=== PATIENT | male | born 1945 | race Two or more races ===

== ENCOUNTER 2018-07-01 22:33 | Inpatient (IN) | payer MEDICARE, MEDICAID ==
[~2018-07-01] VITALS: Ht 167.6 cm; Wt 78.5 kg
[2018-07-02] MEDS ORDERED: NKM (01:16)
[2018-07-02 04:00] VITALS: BP 130/70
[2018-07-02 07:33] LABS: EOSINOPHILS % (AUTO) 0.2 % (0.0-3.0); HEMATOCRIT 40.9 % (42.0-52.0); HEMOGLOBIN 14.5 G/DL (14.2-18.0); LYMPHOCYTES % (AUTO) 7.2 % (20.0-45.0); MEAN CORPUSCULAR VOLUME 79 FL (80-99); MONOCYTES % (AUTO) 10.3 % (1.0-10.0); NEUTROPHILS % (AUTO) 81.3 % (45.0-75.0); PLATELET COUNT 171 K/UL (150-450); RED CELL DISTRIBUTION WIDTH 10.9 % (11.6-14.8); WHITE BLOOD COUNT 8.8 K/UL (4.8-10.8)
[2018-07-02 07:45] LABS: ALANINE AMINOTRANSFERASE 32 U/L (12-78); ALBUMIN 2.6 G/DL (3.4-5.0); ALBUMIN/GLOBULIN RATIO 0.6 (1.0-2.7); ALKALINE PHOSPHATASE 108 U/L (46-116); ANION GAP 10 mmol/L (5-15); ASPARTATE AMINO TRANSFERASE 33 U/L (15-37); BILIRUBIN,TOTAL 0.7 MG/DL (0.2-1.0); BLOOD UREA NITROGEN 16 mg/dL (7-18); CALCIUM 7.5 MG/DL (8.5-10.1); CARBON DIOXIDE 24 MMOL/L (21-32); CHLORIDE 101 MMOL/L (98-107); CREATININE 0.9 MG/DL (0.55-1.30); PHOSPHORUS 1.8 MG/DL (2.5-4.9); POTASSIUM 3.1 MMOL/L (3.5-5.1); SODIUM 135 MMOL/L (136-145)
[2018-07-02 08:21] VITALS: BP 124/62
[2018-07-02] MEDS: Heparin 5000 units/ml inj SUBQ SCH ×3 (09:27→20:37)
--- NOTE | 2018-07-02 10:28 | Diagnostic Imaging Report ---
Indication: Cough Technique: 2 views of the chest Comparison: None Findings: There is dense consolidation of the posterior right middle lobe. The remainder the lungs are clear. The pleural spaces are clear. The heart size is normal Impression: Right middle lobe pneumonia
[2018-07-02 12:51] VITALS: BP 110/68
[2018-07-02] MEDS ORDERED: Isovue-300 100ml vial INJ PRN (13:30)
[2018-07-02] MEDS ORDERED: Promethazine/Codeine 5ml UD ORAL PRN (13:30)
--- NOTE | 2018-07-02 13:32 | Consultation ---
History of Present Illness General Date patient seen: Jul 02, 2018 Reason for Consultation: pneumonia Present Illness HPI 73 year old male without any PMHx was taken to [facility] with CC of fever and chills. Pt was found to have RLL infiltrate, hyponatremia, with nausea and transferred to [facility] for further management. Pt is sitting in bed, looks comfortable. Denies any cough or dyspnea. Allergies: Coded Allergies: PENICILLIN G PROCAINE (Verified Allergy, Intermediate, 07/02/18) PENICILLINS (Verified Allergy, Intermediate, 07/02/18) Medication History Scheduled No Known Medications* (NKM - No Known Medications*), 0 ., (Reported) Patient History Healthcare decision maker Resuscitation status Full Code Advanced Directive on File Past Medical/Surgical History Past Medical/Surgical History: (1) No pertinent past medical history Review of Systems Constitutional: Reports: chills, fever, malaise All Other Systems: negative except mentioned in HPI Physical Exam General Appearance: WD/WN, no apparent distress Lines, tubes and drains: peripheral HEENT: normocephalic, atraumatic Neck: non-tender, normal alignment Respiratory/Chest: chest wall non-tender, lungs clear Breasts: no masses Cardiovascular/Chest: normal rate, regular rhythm Last 24 Hour Vital Signs Date Time Temp Pulse Resp B/P (MAP) Pulse Ox O2 Delivery O2 Flow Rate FiO2 07/02/18 12:51 99.3 18 18 110/68 (82) 98 07/02/18 08:21 97.4 62 20 124/62 (82) 96 07/02/18 05:34 100.3 07/02/18 04:00 102.0 73 18 130/70 (90) 96 07/02/18 01:29 Room Air Intake and Output 07/01/18 07/02/18 19:00 07:00 Intake Total 240 ml Balance 240 ml Intake Oral 240 ml # Voids 1 Laboratory Tests Test 07/02/18 06:42 White Blood Count 8.8 K/UL (4.8-10.8) Red Blood Count 5.20 M/UL (4.70-6.10) Hemoglobin 14.5 G/DL (14.2-18.0) Hematocrit 40.9 % (42.0-52.0) L Mean Corpuscular Volume 79 FL (80-99) L Mean Corpuscular Hemoglobin 27.9 PG (27.0-31.0) Mean Corpuscular Hemoglobin Concent 35.4 G/DL (32.0-36.0) Red Cell Distribution Width 10.9 % (11.6-14.8) L Platelet Count 171 K/UL (150-450) Mean Platelet Volume 6.2 FL (6.5-10.1) L Neutrophils (%) (Auto) 81.3 % (45.0-75.0) H Lymphocytes (%) (Auto) 7.2 % (20.0-45.0) L Monocytes (%) (Auto) 10.3 % (1.0-10.0) H Eosinophils (%) (Auto) 0.2 % (0.0-3.0) Basophils (%) (Auto) 1.0 % (0.0-2.0) Sodium Level 135 MMOL/L (136-145) L Potassium Level 3.1 MMOL/L (3.5-5.1) L Chloride Level 101 MMOL/L (98-107) Carbon Dioxide Level 24 MMOL/L (21-32) Anion Gap 10 mmol/L (5-15) Blood Urea Nitrogen 16 mg/dL (7-18) Creatinine 0.9 MG/DL (0.55-1.30) Estimat Glomerular Filtration Rate mL/min (>60) Glucose Level 100 MG/DL (74-106) Calcium Level 7.5 MG/DL (8.5-10.1) L Phosphorus Level 1.8 MG/DL (2.5-4.9) L Magnesium Level 1.8 MG/DL (1.8-2.4) Total Bilirubin 0.7 MG/DL (0.2-1.0) Aspartate Amino Transf (AST/SGOT) 33 U/L (15-37) Alanine Aminotransferase (ALT/SGPT) 32 U/L (12-78) Alkaline Phosphatase 108 U/L (46-116) Total Protein 6.8 G/DL (6.4-8.2) Albumin 2.6 G/DL (3.4-5.0) L Globulin 4.2 g/dL Albumin/Globulin Ratio 0.6 (1.0-2.7) L Height (Feet): 5 Height (Inches): 6.00 Weight (Pounds): 173 Medications Current Medications Medications (Trade) Dose Ordered Sig/Reinier Route PRN Reason Start Time Stop Time Status Last Admin Dose Admin Acetaminophen (Tylenol) 650 mg Q6H PRN ORAL Mild Pain/Temp > 100.5 07/02/18 01:45 08/01/18 01:44 07/02/18 05:04 Azithromycin (Zithromax) 250 mg DAILY@2000 ORAL 07/02/18 20:00 07/06/18 20:01 Ceftriaxone Sodium 1 gm/ Dextrose 55 ml @ 110 mls/hr Q24H IVPB 07/02/18 20:00 07/09/18 19:59 Heparin Sodium (Porcine) (Heparin 5000 units/ml) 5,000 units EVERY 8 HOURS SUBQ 07/02/18 09:00 08/01/18 08:59 07/02/18 09:27 Iopamidol (Isovue-300 100ml) 100 ml NOW PRN INJ Radiology Procedure 07/02/18 13:30 07/04/18 13:22 UNV Assessment/Plan Problem List: (1) Pneumonia ICD Codes: J18.9 - Pneumonia, unspecified organism SNOMED: 871994203 (2) No pertinent past medical history SNOMED: 584565933 Assessment/Plan respiratory treatment check sputum CT of chest sputum induction check electrolytes symptomatic treatment dvt prophylaxis Cami Isaac MD Jul 02, 2018 13:32
--- NOTE | 2018-07-02 16:04 | Diagnostic Imaging Report ---
Clinical Indication: Right lung infiltrate, fever, chills Technique: IV administration nonionic contrast. Spiral acquisition obtained through the chest. Multiplanar reconstructions generated. Total dose length product 834.09 mGycm. CTDIvol(s) 19.71 mGy. Dose reduction achieved using automated exposure control Comparison: Chest radiograph of 5 hours earlier Findings: Infiltrate is seen involving the entire posterior right middle lobe. This also extends into the superior segment of the right lower lobe. The right upper lobe and left lung are clear. The pleural spaces are clear. The central airways are patent. The heart size is upper limits normal. No pericardial effusion. No mediastinal or hilar mass or adenopathy. Included portions of the thyroid are unremarkable. No axillary or chest wall mass or adenopathy. The esophagus is unremarkable. The bones are unremarkable. The included upper abdominal anatomy demonstrates a cyst in the right kidney. There is a cyst in the tip of the right hepatic lobe. The liver is somewhat hypoattenuating. Impression: Right middle lobe and superior segment right lower lobe infiltrate. Most likely secondary to pneumonia. Incidental finding of mild fatty liver Incidental findings of right renal and right lobe hepatic cyst. The CT scanner at [facility] is accredited by the [employer] and the scans are performed using protocols designed to limit radiation exposure to as low as reasonably achievable to attain images of sufficient resolution adequate for diagnostic evaluation.
[2018-07-02 16:29] VITALS: BP 132/61
[2018-07-02 20:00] VITALS: BP 107/55
[2018-07-02] MEDS ORDERED: cefTRIAXone 1 GM in D5W 55 ML IVPB SCH (20:00)
[2018-07-02] MEDS ORDERED: Azithromycin 250mg tab ORAL SCH (20:00)
[2018-07-02] MEDS: cefTRIAXone 2gm/D5W 110ml IVPB SCH ×2 (20:07)
[2018-07-02] MEDS: Azithromycin 250mg tab ORAL SCH (20:08)
[2018-07-02] MEDS: Albuterol/Ipratropium 3ml neb HHN SCH (20:14)
[2018-07-02] MEDS: Theophylline ER 100mg ORAL SCH (20:36)
--- NOTE | 2018-07-02 22:55 | History & Physical ---
History and Physical History & Physicial Last 24 Hour Vital Signs Date Time Temp Pulse Resp B/P (MAP) Pulse Ox O2 Delivery O2 Flow Rate FiO2 07/02/18 21:00 Room Air 07/02/18 20:25 67 18 99 Room Air 21 07/02/18 20:16 61 18 Room Air 21 07/02/18 20:14 61 18 97 Room Air 21 07/02/18 20:00 99.7 58 16 107/55 (72) 96 07/02/18 18:00 100.6 07/02/18 17:59 100.6 07/02/18 16:29 102.3 69 16 132/61 (84) 98 07/02/18 12:51 99.3 18 18 110/68 (82) 98 07/02/18 09:00 Room Air 07/02/18 08:21 97.4 62 20 124/62 (82) 96 07/02/18 04:00 102.0 73 18 130/70 (90) 96 07/02/18 01:29 Room Air Juni Haider MD Jul 02, 2018 22:55
--- NOTE | 2018-07-02 23:56 | Consultation ---
History of Present Illness General Date patient seen: Jul 02, 2018 Reason for Consultation: pneumonia Present Illness HPI 73-year-old gentleman, who denies any past medical or past surgical history, who has presented initially to [facility]/ the pt has anxiety, low energy and insomnia. no si/hi Allergies: Coded Allergies: PENICILLIN G PROCAINE (Verified Allergy, Intermediate, 07/02/18) PENICILLINS (Verified Allergy, Intermediate, 07/02/18) Medication History Scheduled No Known Medications* (NKM - No Known Medications*), 0 ., (Reported) Patient History Limited by: medical condition History Provided By: Patient, Medical Record Healthcare decision maker Resuscitation status Full Code Advanced Directive on File Past Medical/Surgical History Past Medical/Surgical History: (1) Pneumonia (2) No pertinent past medical history Review of Systems Psychiatric: Reports: prior hx, anxiety, depressed feelings, emotional problems Physical Exam General Appearance: no apparent distress, alert Neurologic: oriented x 3, responsive, normal mood/affect Last 24 Hour Vital Signs Date Time Temp Pulse Resp B/P (MAP) Pulse Ox O2 Delivery O2 Flow Rate FiO2 07/02/18 21:00 Room Air 07/02/18 20:25 67 18 99 Room Air 21 07/02/18 20:16 61 18 Room Air 21 07/02/18 20:14 61 18 97 Room Air 21 07/02/18 20:00 99.7 58 16 107/55 (72) 96 07/02/18 18:00 100.6 07/02/18 17:59 100.6 07/02/18 16:29 102.3 69 16 132/61 (84) 98 07/02/18 12:51 99.3 18 18 110/68 (82) 98 07/02/18 09:00 Room Air 07/02/18 08:21 97.4 62 20 124/62 (82) 96 07/02/18 04:00 102.0 73 18 130/70 (90) 96 07/02/18 01:29 Room Air Intake and Output 07/01/18 07/02/18 19:00 07:00 Intake Total 240 ml Balance 240 ml Intake Oral 240 ml # Voids 1 Laboratory Tests Test 07/02/18 06:42 White Blood Count 8.8 K/UL (4.8-10.8) Red Blood Count 5.20 M/UL (4.70-6.10) Hemoglobin 14.5 G/DL (14.2-18.0) Hematocrit 40.9 % (42.0-52.0) L Mean Corpuscular Volume 79 FL (80-99) L Mean Corpuscular Hemoglobin 27.9 PG (27.0-31.0) Mean Corpuscular Hemoglobin Concent 35.4 G/DL (32.0-36.0) Red Cell Distribution Width 10.9 % (11.6-14.8) L Platelet Count 171 K/UL (150-450) Mean Platelet Volume 6.2 FL (6.5-10.1) L Neutrophils (%) (Auto) 81.3 % (45.0-75.0) H Lymphocytes (%) (Auto) 7.2 % (20.0-45.0) L Monocytes (%) (Auto) 10.3 % (1.0-10.0) H Eosinophils (%) (Auto) 0.2 % (0.0-3.0) Basophils (%) (Auto) 1.0 % (0.0-2.0) Sodium Level 135 MMOL/L (136-145) L Potassium Level 3.1 MMOL/L (3.5-5.1) L Chloride Level 101 MMOL/L (98-107) Carbon Dioxide Level 24 MMOL/L (21-32) Anion Gap 10 mmol/L (5-15) Blood Urea Nitrogen 16 mg/dL (7-18) Creatinine 0.9 MG/DL (0.55-1.30) Estimat Glomerular Filtration Rate mL/min (>60) Glucose Level 100 MG/DL (74-106) Calcium Level 7.5 MG/DL (8.5-10.1) L Phosphorus Level 1.8 MG/DL (2.5-4.9) L Magnesium Level 1.8 MG/DL (1.8-2.4) Total Bilirubin 0.7 MG/DL (0.2-1.0) Aspartate Amino Transf (AST/SGOT) 33 U/L (15-37) Alanine Aminotransferase (ALT/SGPT) 32 U/L (12-78) Alkaline Phosphatase 108 U/L (46-116) Total Protein 6.8 G/DL (6.4-8.2) Albumin 2.6 G/DL (3.4-5.0) L Globulin 4.2 g/dL Albumin/Globulin Ratio 0.6 (1.0-2.7) L Microbiology Date/Time Source Procedure Growth Status 07/02/18 18:45 Nose Influenza Types A,B Antigen (JOSH) - Final Complete Height (Feet): 5 Height (Inches): 6.00 Weight (Pounds): 173 Medications Current Medications Medications (Trade) Dose Ordered Sig/Reinier Route PRN Reason Start Time Stop Time Status Last Admin Dose Admin Acetaminophen (Tylenol) 650 mg Q6H PRN ORAL Mild Pain/Temp > 100.5 07/02/18 01:45 08/01/18 01:44 07/02/18 17:29 Albuterol/ Ipratropium (Albuterol/ Ipratropium) 3 ml Q6HRT HHN 07/02/18 19:00 07/07/18 18:59 07/02/18 20:14 Azithromycin (Zithromax) 500 mg Q24H ORAL 07/02/18 20:00 07/09/18 19:59 07/02/18 20:08 Ceftriaxone Sodium 2 gm/ Dextrose 110 ml @ 220 mls/hr Q24H IVPB 07/02/18 20:00 07/09/18 19:59 07/02/18 20:07 Heparin Sodium (Porcine) (Heparin 5000 units/ml) 5,000 units EVERY 8 HOURS SUBQ 07/02/18 09:00 08/01/18 08:59 07/02/18 20:37 Iopamidol (Isovue-300 100ml) 100 ml NOW PRN INJ Radiology Procedure 07/02/18 13:30 07/04/18 13:22 Promethazine HCl/ Codeine (Phenergan with Codeine) 5 ml Q4H PRN ORAL For Cough 07/02/18 13:30 08/01/18 13:29 Theophylline (Slava-Dur) 100 mg EVERY 12 HOURS ORAL 07/02/18 21:00 08/01/18 20:59 07/02/18 20:36 Assessment/Plan Problem List: (1) Anxiety disorder ICD Codes: F41.9 - Anxiety disorder, unspecified SNOMED: 044383539 Assessment/Plan Ativan prn provided ro/Heidi Renteria MD Jul 02, 2018 23:56
[2018-07-03] VITALS: BP 130/74
[2018-07-03] MEDS: Albuterol/Ipratropium 3ml neb HHN SCH ×4 (00:35→20:28)
[2018-07-03 04:00] VITALS: BP 124/74
--- NOTE | 2018-07-03 04:01 | History and Physical Report ---
DATE OF ADMISSION: 07/02/2018 CHIEF COMPLAINT: Fever. HISTORY OF PRESENT ILLNESS: This is a 73-year-old gentleman, who denies any past medical or past surgical history, who has presented initially to [facility], complaining about fever over past 5 days. No chills. No night sweats. Slightly cough. No hemoptysis. Shortly after initial evaluation in the emergency room, the patient was found to have a right-sided right lower lobe infiltrate on a chest x-ray and was noted to be hyponatremic and subsequently, the patient was transferred to the [facility] for further evaluation and antibiotic therapy. PAST MEDICAL HISTORY/PAST SURGICAL HISTORY: None. MEDICATIONS: None. SOCIAL HISTORY: Denies any smoking, alcohol, or drugs. He lives with the family member. FAMILY HISTORY: Noncontributory. REVIEW OF SYSTEMS: Mostly as above. Denies any dysuria, frequency, or hematuria. Complained about fever and cough. Denies any hemoptysis or hematochezia. Denies any bright red blood per rectum. Denies any chills. Denies any loss of consciousness. Denies any suicidal or homicidal ideations. PHYSICAL EXAMINATION: VITAL SIGNS: On admission from the [facility] ER, blood pressure 132/81, pulse of 101, respiration 20, and temperature of 101.2. GENERAL: The patient is awake, responsive, and in no acute distress. HEAD AND NECK: Pupils are reactive to light. Extraocular movements intact. NECK: Supple. No JVD. LUNGS: Good air entry. No wheezing or rales. HEART: S1 and S2. Regular rhythm. No gallops. ABDOMEN: Soft, nondistended, and nontender. Positive bowel sounds. EXTREMITIES: No cyanosis, clubbing, or edema. NEUROLOGIC: Cranial nerves II through XII grossly intact. Moves all four extremities. Gait is intact. RECTAL AND GENITOURINARY: Refused and deferred. PSYCHIATRIC: Mood and affect is intact. LABORATORY AND DIAGNOSTIC DATA: On admission from [facility], the patient's urinalysis is negative for glucose, +1 ketone, negative nitrite, and +1 protein. WBC of 12, hemoglobin 16, hematocrit 46, and platelet is 229,000. Sodium was 127, potassium 3.7, chloride 95, bicarbonate 22, BUN is 17, and glucose is 126. Total bilirubin up to 1.1. Alkaline phosphatase 105, AST of 41, and ALT of 31. First troponin 0.03. Chest x-ray showed the right lower lobe infiltrate. No pneumothorax. EKG, normal sinus rhythm. IMPRESSION: 1. Fever most likely secondary to community-acquired pneumonia. 2. Hyponatremia. 3. Dehydration. PLAN: 1. Admit the patient to medical/surgical. 2. We will will follow up with Dr. Isaac, pulmonary Critical Care. 3. We have reviewed the record from [facility]. 4. Broad-spectrum antibiotic with Rocephin and azithromycin. 5. Code status is Full Code. 6. DVT prophylaxis with heparin subcutaneous. 7. We will follow up with the CT scan of the chest. Juni Haider M.D. DR: FLO JOB#: [id number] CC:
[2018-07-03] MEDS: Heparin 5000 units/ml inj SUBQ SCH ×3 (06:05→21:46)
[2018-07-03 07:22] LABS: BASOPHILS % (AUTO) 0.8 % (0.0-2.0); EOSINOPHILS % (AUTO) 3.3 % (0.0-3.0); HEMATOCRIT 41.2 % (42.0-52.0); HEMOGLOBIN 14.3 G/DL (14.2-18.0); LYMPHOCYTES % (AUTO) 13.9 % (20.0-45.0); MEAN CORPUSCULAR VOLUME 79 FL (80-99); MONOCYTES % (AUTO) 9.6 % (1.0-10.0); NEUTROPHILS % (AUTO) 72.4 % (45.0-75.0); PLATELET COUNT 192 K/UL (150-450); RED BLOOD COUNT 5.21 M/UL (4.70-6.10); RED CELL DISTRIBUTION WIDTH 10.9 % (11.6-14.8); WHITE BLOOD COUNT 6.7 K/UL (4.8-10.8)
[2018-07-03 07:43] LABS: ALANINE AMINOTRANSFERASE 28 U/L (12-78); ALBUMIN 2.6 G/DL (3.4-5.0); ALBUMIN/GLOBULIN RATIO 0.6 (1.0-2.7); ALKALINE PHOSPHATASE 110 U/L (46-116); ANION GAP 9 mmol/L (5-15); ASPARTATE AMINO TRANSFERASE 33 U/L (15-37); BILIRUBIN,TOTAL 0.4 MG/DL (0.2-1.0); BLOOD UREA NITROGEN 10 mg/dL (7-18); CARBON DIOXIDE 24 MMOL/L (21-32); CHLORIDE 102 MMOL/L (98-107); CREATININE 0.8 MG/DL (0.55-1.30); PHOSPHORUS 1.8 MG/DL (2.5-4.9); POTASSIUM 3.4 MMOL/L (3.5-5.1); SODIUM 135 MMOL/L (136-145)
[2018-07-03 08:00] VITALS: BP 149/73
[2018-07-03] MEDS: Theophylline ER 100mg ORAL SCH ×2 (09:16→21:42)
[2018-07-03 12:00] VITALS: BP 124/66
[2018-07-03] MEDS ORDERED: LORazepam 1mg tab ORAL PRN (14:15)
--- NOTE | 2018-07-03 14:16 | Consultation ---
History of Present Illness General Date patient seen: Jul 03, 2018 Reason for Consultation: pneumonia Present Illness HPI 73 y/o M with no prior medical hx of presents to ED on 07/02 with fever, chills and nausea. He was found to have RLL infiltrate, hyponatremia Denies cough, SOB, night sweats Allergies: Coded Allergies: PENICILLIN G PROCAINE (Verified Allergy, Intermediate, 07/02/18) PENICILLINS (Verified Allergy, Intermediate, 07/02/18) Medication History Scheduled No Known Medications* (NKM - No Known Medications*), 0 ., (Reported) Patient History Healthcare decision maker Resuscitation status Full Code Advanced Directive on File Patient History Narrative Pmhx: as above Shx: Denies any smoking, alcohol, or drugs. He lives with the family member. Fhx: non contributory Physical Exam Physical Exam Narrative GENERAL: The patient is awake, responsive, and in no acute distress. HEAD AND NECK: Pupils are reactive to light. Extraocular movements intact. NECK: Supple. No JVD. LUNGS: Good air entry. No wheezing or rales. HEART: S1 and S2. Regular rhythm. No gallops. ABDOMEN: Soft, nondistended, and nontender. Positive bowel sounds. EXTREMITIES: No cyanosis, clubbing, or edema. NEUROLOGIC: Cranial nerves II through XII grossly intact. Moves all four extremities. Gait is intact. RECTAL AND GENITOURINARY: Refused and deferred. PSYCHIATRIC: Mood and affect is intact. Last 24 Hour Vital Signs Date Time Temp Pulse Resp B/P (MAP) Pulse Ox O2 Delivery O2 Flow Rate FiO2 07/03/18 13:09 73 18 100 Room Air 21 07/03/18 13:00 74 18 97 Room Air 21 07/03/18 12:00 98.4 61 20 124/66 (85) 98 07/03/18 09:00 Room Air 07/03/18 08:00 98.9 63 19 149/73 (98) 96 07/03/18 07:25 61 16 100 Room Air 21 07/03/18 07:20 62 18 97 Room Air 21 07/03/18 04:00 99.3 65 16 124/74 (91) 99 07/03/18 00:44 64 18 100 Room Air 21 07/03/18 00:36 64 18 96 Room Air 21 07/03/18 00:00 99.2 58 16 130/74 (92) 97 07/02/18 21:00 Room Air 07/02/18 20:25 67 18 99 Room Air 21 07/02/18 20:16 61 18 Room Air 21 07/02/18 20:14 61 18 97 Room Air 21 07/02/18 20:00 99.7 58 16 107/55 (72) 96 07/02/18 18:00 100.6 07/02/18 17:59 100.6 07/02/18 16:29 102.3 69 16 132/61 (84) 98 Intake and Output 07/02/18 07/03/18 19:00 07:00 Intake Total 720 ml Balance 720 ml Other 720 ml # Voids 3 # Bowel Movements 2 Laboratory Tests Test 07/03/18 06:30 White Blood Count 6.7 K/UL (4.8-10.8) Red Blood Count 5.21 M/UL (4.70-6.10) Hemoglobin 14.3 G/DL (14.2-18.0) Hematocrit 41.2 % (42.0-52.0) L Mean Corpuscular Volume 79 FL (80-99) L Mean Corpuscular Hemoglobin 27.5 PG (27.0-31.0) Mean Corpuscular Hemoglobin Concent 34.8 G/DL (32.0-36.0) Red Cell Distribution Width 10.9 % (11.6-14.8) L Platelet Count 192 K/UL (150-450) Mean Platelet Volume 5.9 FL (6.5-10.1) L Neutrophils (%) (Auto) 72.4 % (45.0-75.0) Lymphocytes (%) (Auto) 13.9 % (20.0-45.0) L Monocytes (%) (Auto) 9.6 % (1.0-10.0) Eosinophils (%) (Auto) 3.3 % (0.0-3.0) H Basophils (%) (Auto) 0.8 % (0.0-2.0) Erythrocyte Sedimentation Rate 44 MM/HR (0-20) H Sodium Level 135 MMOL/L (136-145) L Potassium Level 3.4 MMOL/L (3.5-5.1) L Chloride Level 102 MMOL/L (98-107) Carbon Dioxide Level 24 MMOL/L (21-32) Anion Gap 9 mmol/L (5-15) Blood Urea Nitrogen 10 mg/dL (7-18) Creatinine 0.8 MG/DL (0.55-1.30) Estimat Glomerular Filtration Rate mL/min (>60) Glucose Level 102 MG/DL (74-106) Calcium Level 8.0 MG/DL (8.5-10.1) L Phosphorus Level 1.8 MG/DL (2.5-4.9) L Magnesium Level 2.2 MG/DL (1.8-2.4) Total Bilirubin 0.4 MG/DL (0.2-1.0) Aspartate Amino Transf (AST/SGOT) 33 U/L (15-37) Alanine Aminotransferase (ALT/SGPT) 28 U/L (12-78) Alkaline Phosphatase 110 U/L (46-116) C-Reactive Protein, Quantitative 17.4 mg/dL (0.00-0.90) H Total Protein 6.8 G/DL (6.4-8.2) Albumin 2.6 G/DL (3.4-5.0) L Globulin 4.2 g/dL Albumin/Globulin Ratio 0.6 (1.0-2.7) L Microbiology Date/Time Source Procedure Growth Status 07/02/18 18:45 Nose Influenza Types A,B Antigen (JOSH) - Final Complete Height (Feet): 5 Height (Inches): 6.00 Weight (Pounds): 173 Medications Current Medications Medications (Trade) Dose Ordered Sig/Reinier Route PRN Reason Start Time Stop Time Status Last Admin Dose Admin Acetaminophen (Tylenol) 650 mg Q6H PRN ORAL Mild Pain/Temp > 100.5 07/02/18 01:45 08/01/18 01:44 07/02/18 17:29 Albuterol/ Ipratropium (Albuterol/ Ipratropium) 3 ml Q6HRT HHN 07/02/18 19:00 07/07/18 18:59 07/03/18 13:08 Azithromycin (Zithromax) 500 mg Q24H ORAL 07/02/18 20:00 07/09/18 19:59 07/02/18 20:08 Ceftriaxone Sodium 2 gm/ Dextrose 110 ml @ 220 mls/hr Q24H IVPB 07/02/18 20:00 07/09/18 19:59 07/02/18 20:07 Heparin Sodium (Porcine) (Heparin 5000 units/ml) 5,000 units EVERY 8 HOURS SUBQ 07/02/18 09:00 08/01/18 08:59 07/03/18 06:05 Iopamidol (Isovue-300 100ml) 100 ml NOW PRN INJ Radiology Procedure 07/02/18 13:30 07/04/18 13:22 Lorazepam (Ativan) 1 mg Q6H PRN ORAL For Anxiety 07/03/18 14:15 07/10/18 14:14 Promethazine HCl/ Codeine (Phenergan with Codeine) 5 ml Q4H PRN ORAL For Cough 07/02/18 13:30 08/01/18 13:29 Theophylline (Slava-Dur) 100 mg EVERY 12 HOURS ORAL 07/02/18 21:00 08/01/18 20:59 07/03/18 09:16 Assessment/Plan Assessment/Plan Abx: Ceftriaxone 07/02- Azithromycin 07/02- Assessment: CAP -CXR: There is dense consolidation of the posterior right middle lobe. The remainder the lungs are clear. -influenza sc neg -CT chest: Right middle lobe and superior segment right lower lobe infiltrate. Most likely secondary to pneumonia. Incidental finding of mild fatty liver. Incidental findings of right renal and right lobe hepatic cyst. Fever, improving No Leukocytosis Plan: -Continue Ceftriaxone and Azithromycin #2 for PNA -f/u sp cx -f/u cx -Monitor CBC/CMP, temperatures -aspiration precautions Thank you for this consultation. Will continue to follow along with you. Discussed with Nina Jauregui M.D. Jul 03, 2018 14:16
--- NOTE | 2018-07-03 14:34 | Pulmonology Progress Note ---
Assessment/Plan Problems: (1) Pneumonia (2) No pertinent past medical history Assessment/Plan CT reviewed, no intrabronchial lesion seen afebrile sputum pending chest pt check WBC symptomatic treatment antitussives Subjective ROS Limited/Unobtainable: No Interval Events: doing better Allergies: Coded Allergies: PENICILLIN G PROCAINE (Verified Allergy, Intermediate, 07/02/18) PENICILLINS (Verified Allergy, Intermediate, 07/02/18) Objective Last 24 Hour Vital Signs Date Time Temp Pulse Resp B/P (MAP) Pulse Ox O2 Delivery O2 Flow Rate FiO2 07/03/18 13:09 73 18 100 Room Air 21 07/03/18 13:00 74 18 97 Room Air 21 07/03/18 12:00 98.4 61 20 124/66 (85) 98 07/03/18 09:00 Room Air 07/03/18 08:00 98.9 63 19 149/73 (98) 96 07/03/18 07:25 61 16 100 Room Air 21 07/03/18 07:20 62 18 97 Room Air 21 07/03/18 04:00 99.3 65 16 124/74 (91) 99 07/03/18 00:44 64 18 100 Room Air 21 07/03/18 00:36 64 18 96 Room Air 21 07/03/18 00:00 99.2 58 16 130/74 (92) 97 07/02/18 21:00 Room Air 07/02/18 20:25 67 18 99 Room Air 21 07/02/18 20:16 61 18 Room Air 21 07/02/18 20:14 61 18 97 Room Air 21 07/02/18 20:00 99.7 58 16 107/55 (72) 96 07/02/18 18:00 100.6 07/02/18 17:59 100.6 07/02/18 16:29 102.3 69 16 132/61 (84) 98 Intake and Output 07/02/18 07/03/18 19:00 07:00 Intake Total 720 ml Balance 720 ml Other 720 ml # Voids 3 # Bowel Movements 2 General Appearance: WD/WN HEENT: normocephalic, atraumatic Respiratory/Chest: chest wall non-tender, lungs clear Cardiovascular: normal peripheral pulses, normal rate Abdomen: normal bowel sounds, soft, non tender, no scars 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 Microbiology Date/Time Source Procedure Growth Status 07/02/18 18:45 Nose Influenza Types A,B Antigen (JOSH) - Final Complete Laboratory Tests 07/03/18 06:30: White Blood Count 6.7, Red Blood Count 5.21, Hemoglobin 14.3, Hematocrit 41.2L, Mean Corpuscular Volume 79L, Mean Corpuscular Hemoglobin 27.5, Mean Corpuscular Hemoglobin Concent 34.8, Red Cell Distribution Width 10.9L, Platelet Count 192, Mean Platelet Volume 5.9L, Neutrophils (%) (Auto) 72.4, Lymphocytes (%) (Auto) 13.9L, Monocytes (%) (Auto) 9.6, Eosinophils (%) (Auto) 3.3H, Basophils (%) ( Auto) 0.8, Erythrocyte Sedimentation Rate 44H, Sodium Level 135L, Potassium Level 3.4L, Chloride Level 102, Carbon Dioxide Level 24, Anion Gap 9, Blood Urea Nitrogen 10, Creatinine 0.8, Estimat Glomerular Filtration Rate , Glucose Level 102, Calcium Level 8.0L, Phosphorus Level 1.8L, Magnesium Level 2.2, Total Bilirubin 0.4, Aspartate Amino Transf (AST/SGOT) 33, Alanine Aminotransferase (ALT/SGPT) 28, Alkaline Phosphatase 110, C-Reactive Protein, Quantitative 17.4H, Total Protein 6.8, Albumin 2.6L, Globulin 4.2, Albumin/ Globulin Ratio 0.6L Current Medications Medications (Trade) Dose Ordered Sig/Reinier Route PRN Reason Start Time Stop Time Status Last Admin Dose Admin Acetaminophen (Tylenol) 650 mg Q6H PRN ORAL Mild Pain/Temp > 100.5 07/02/18 01:45 08/01/18 01:44 07/02/18 17:29 Albuterol/ Ipratropium (Albuterol/ Ipratropium) 3 ml Q6HRT HHN 07/02/18 19:00 07/07/18 18:59 07/03/18 13:08 Azithromycin (Zithromax) 500 mg Q24H ORAL 07/02/18 20:00 07/09/18 19:59 07/02/18 20:08 Ceftriaxone Sodium 2 gm/ Dextrose 110 ml @ 220 mls/hr Q24H IVPB 07/02/18 20:00 07/09/18 19:59 07/02/18 20:07 Heparin Sodium (Porcine) (Heparin 5000 units/ml) 5,000 units EVERY 8 HOURS SUBQ 07/02/18 09:00 08/01/18 08:59 07/03/18 06:05 Iopamidol (Isovue-300 100ml) 100 ml NOW PRN INJ Radiology Procedure 07/02/18 13:30 07/04/18 13:22 Lorazepam (Ativan) 1 mg Q6H PRN ORAL For Anxiety 07/03/18 14:15 07/10/18 14:14 Promethazine HCl/ Codeine (Phenergan with Codeine) 5 ml Q4H PRN ORAL For Cough 07/02/18 13:30 08/01/18 13:29 Theophylline (Slava-Dur) 100 mg EVERY 12 HOURS ORAL 07/02/18 21:00 08/01/18 20:59 07/03/18 09:16 Cami Isaac MD Jul 03, 2018 14:34
--- NOTE | 2018-07-03 15:34 | Internal Med Progress Note ---
Subjective Physician Name Juni Haider Attending Physician Juni Haider MD Current Medications Medications (Trade) Dose Ordered Sig/Reinier Route PRN Reason Start Time Stop Time Status Last Admin Dose Admin Acetaminophen (Tylenol) 650 mg Q6H PRN ORAL Mild Pain/Temp > 100.5 07/02/18 01:45 08/01/18 01:44 07/02/18 17:29 Albuterol/ Ipratropium (Albuterol/ Ipratropium) 3 ml Q6HRT HHN 07/02/18 19:00 07/07/18 18:59 07/03/18 13:08 Azithromycin (Zithromax) 500 mg Q24H ORAL 07/02/18 20:00 07/09/18 19:59 07/02/18 20:08 Ceftriaxone Sodium 2 gm/ Dextrose 110 ml @ 220 mls/hr Q24H IVPB 07/02/18 20:00 07/09/18 19:59 07/02/18 20:07 Heparin Sodium (Porcine) (Heparin 5000 units/ml) 5,000 units EVERY 8 HOURS SUBQ 07/02/18 09:00 08/01/18 08:59 07/03/18 14:31 Iopamidol (Isovue-300 100ml) 100 ml NOW PRN INJ Radiology Procedure 07/02/18 13:30 07/04/18 13:22 Lorazepam (Ativan) 1 mg Q6H PRN ORAL For Anxiety 07/03/18 14:15 07/10/18 14:14 Promethazine HCl/ Codeine (Phenergan with Codeine) 5 ml Q4H PRN ORAL For Cough 07/02/18 13:30 08/01/18 13:29 Theophylline (Slava-Dur) 100 mg EVERY 12 HOURS ORAL 07/02/18 21:00 08/01/18 20:59 07/03/18 09:16 Allergies: Coded Allergies: PENICILLIN G PROCAINE (Verified Allergy, Intermediate, 07/02/18) PENICILLINS (Verified Allergy, Intermediate, 07/02/18) Subjective awake, responsive, No SOB, + Dry cough. Objective Last Vital Signs Date Time Temp Pulse Resp B/P (MAP) Pulse Ox O2 Delivery O2 Flow Rate FiO2 07/03/18 13:09 73 18 100 Room Air 21 07/03/18 12:00 98.4 124/66 (85) Laboratory Tests Test 07/03/18 06:30 White Blood Count 6.7 K/UL (4.8-10.8) Red Blood Count 5.21 M/UL (4.70-6.10) Hemoglobin 14.3 G/DL (14.2-18.0) Hematocrit 41.2 % (42.0-52.0) L Mean Corpuscular Volume 79 FL (80-99) L Mean Corpuscular Hemoglobin 27.5 PG (27.0-31.0) Mean Corpuscular Hemoglobin Concent 34.8 G/DL (32.0-36.0) Red Cell Distribution Width 10.9 % (11.6-14.8) L Platelet Count 192 K/UL (150-450) Mean Platelet Volume 5.9 FL (6.5-10.1) L Neutrophils (%) (Auto) 72.4 % (45.0-75.0) Lymphocytes (%) (Auto) 13.9 % (20.0-45.0) L Monocytes (%) (Auto) 9.6 % (1.0-10.0) Eosinophils (%) (Auto) 3.3 % (0.0-3.0) H Basophils (%) (Auto) 0.8 % (0.0-2.0) Erythrocyte Sedimentation Rate 44 MM/HR (0-20) H Sodium Level 135 MMOL/L (136-145) L Potassium Level 3.4 MMOL/L (3.5-5.1) L Chloride Level 102 MMOL/L (98-107) Carbon Dioxide Level 24 MMOL/L (21-32) Anion Gap 9 mmol/L (5-15) Blood Urea Nitrogen 10 mg/dL (7-18) Creatinine 0.8 MG/DL (0.55-1.30) Estimat Glomerular Filtration Rate mL/min (>60) Glucose Level 102 MG/DL (74-106) Calcium Level 8.0 MG/DL (8.5-10.1) L Phosphorus Level 1.8 MG/DL (2.5-4.9) L Magnesium Level 2.2 MG/DL (1.8-2.4) Total Bilirubin 0.4 MG/DL (0.2-1.0) Aspartate Amino Transf (AST/SGOT) 33 U/L (15-37) Alanine Aminotransferase (ALT/SGPT) 28 U/L (12-78) Alkaline Phosphatase 110 U/L (46-116) C-Reactive Protein, Quantitative 17.4 mg/dL (0.00-0.90) H Total Protein 6.8 G/DL (6.4-8.2) Albumin 2.6 G/DL (3.4-5.0) L Globulin 4.2 g/dL Albumin/Globulin Ratio 0.6 (1.0-2.7) L Microbiology Date/Time Source Procedure Growth Status 07/02/18 18:45 Nose Influenza Types A,B Antigen (JOSH) - Final Complete Intake and Output 07/02/18 07/03/18 19:00 07:00 Intake Total 720 ml Balance 720 ml Other 720 ml # Voids 3 # Bowel Movements 2 Objective General: No acute distress, awake and alert HEENT: NCAT, sclera anicteric, PERRL, EOMI. Neck: Supple, no significant jugular venous distention, Lungs: Good inspiratory effort, clear to auscultation bilaterally, no Wheeze or Rales. Heart: Regular rate and rhythm, normal S1/S2, no murmurs Abdomen: soft, nontender, nondistended. Normoactive bowel sounds. / Rectal: Refused and deferred. Extremities: No Cyanosis , clubbing or edema. Neuro: A&O x 3, Able to move all extremities Skin: warm, no rashes or lesions Psych: Normal mood and affect Assessment/Plan Assessment/Plan 1. Fever most likely secondary to community-acquired pneumonia with Right middle lobe and superior segment right lower lobe infiltrate. 2. Hyponatremia resolving. 3. Dehydration. Plan: Abx: Zithromax and Rocephin F/U with Dr. Isaac recommendation Heparin SQ Full code DC planning in [address] Chest: Impression: Right middle lobe and superior segment right lower lobe infiltrate. Most likely secondary to pneumonia. Incidental finding of mild fatty liver Incidental findings of right renal and right lobe hepatic cyst. Juni Haider MD Jul 03, 2018 15:34
[2018-07-03 16:00] VITALS: BP 134/75
[2018-07-03] MEDS ORDERED: NS 275ml ONE (17:37)
[2018-07-03 20:00] VITALS: BP 137/70
[2018-07-03] MEDS: Azithromycin 250mg tab ORAL SCH (20:02)
[2018-07-03] MEDS: cefTRIAXone 2gm/D5W 110ml IVPB SCH ×2 (20:41)
[2018-07-04] VITALS: BP 136/70
[2018-07-04] MEDS: Albuterol/Ipratropium 3ml neb HHN SCH ×3 (01:00→13:25)
[2018-07-04 03:59] VITALS: BP 123/64
[2018-07-04 05:39] LABS: EOSINOPHILS % (AUTO) 5.5 % (0.0-3.0); HEMATOCRIT 38.9 % (42.0-52.0); HEMOGLOBIN 13.7 G/DL (14.2-18.0); LYMPHOCYTES % (AUTO) 19.7 % (20.0-45.0); MEAN CORPUSCULAR VOLUME 79 FL (80-99); MONOCYTES % (AUTO) 7.5 % (1.0-10.0); NEUTROPHILS % (AUTO) 66.3 % (45.0-75.0); PLATELET COUNT 220 K/UL (150-450); RED BLOOD COUNT 4.91 M/UL (4.70-6.10); WHITE BLOOD COUNT 6.5 K/UL (4.8-10.8)
[2018-07-04 05:56] LABS: ALANINE AMINOTRANSFERASE 37 U/L (12-78); ALBUMIN 2.6 G/DL (3.4-5.0); ALBUMIN/GLOBULIN RATIO 0.6 (1.0-2.7); ALKALINE PHOSPHATASE 106 U/L (46-116); ANION GAP 5 mmol/L (5-15); ASPARTATE AMINO TRANSFERASE 34 U/L (15-37); BILIRUBIN,TOTAL 0.4 MG/DL (0.2-1.0); BLOOD UREA NITROGEN 9 mg/dL (7-18); CALCIUM 8.3 MG/DL (8.5-10.1); CARBON DIOXIDE 30 MMOL/L (21-32); CHLORIDE 104 MMOL/L (98-107); CREATININE 0.8 MG/DL (0.55-1.30); PHOSPHORUS 2.9 MG/DL (2.5-4.9); POTASSIUM 3.6 MMOL/L (3.5-5.1); SODIUM 138 MMOL/L (136-145)
[2018-07-04] MEDS: Heparin 5000 units/ml inj SUBQ SCH ×3 (06:00→14:00)
--- NOTE | 2018-07-04 07:38 | Pulmonology Progress Note ---
Assessment/Plan Assessment/Plan ASSESSMENT Community-acquired pneumonia Dehydration e/lyte imbalance Fever secondary to community-acquired pneumonia Mild fatty liver PLAN of CARE MS floor O2 prn to keep sat above 92 % pulmonary toilet with HHN and CPT initial chest x-ray with RML infiltrate CT chest with evidence of infiltrates empiric antibiotics ID follows sputum cx if able influenza screen test negative trial of theophylline antitussive prn fup with CXR Friday DVT prophylaxis s/p IVF, correct lytes prn, monitor renal parameters and lytes, avoid nephrotoxic anticipate dc in 1 -2 days case discussed and evaluated by supervising physician Subjective Allergies: Coded Allergies: PENICILLIN G PROCAINE (Verified Allergy, Intermediate, 07/02/18) PENICILLINS (Verified Allergy, Intermediate, 07/02/18) Subjective afebrile, no leucocytosis pulse ox stable on RA + cough, +minimally productive , no hemoptysis, no wheezing K stable Objective Last 24 Hour Vital Signs Date Time Temp Pulse Resp B/P (MAP) Pulse Ox O2 Delivery O2 Flow Rate FiO2 07/04/18 03:59 98.6 55 20 123/64 (83) 98 07/04/18 01:19 Room Air 21 07/04/18 01:19 Room Air 21 07/04/18 00:00 99.0 58 20 136/70 (92) 96 07/03/18 21:00 Room Air 07/03/18 20:31 62 18 100 Room Air 21 07/03/18 20:19 60 18 96 Room Air 21 07/03/18 20:00 98.7 64 20 137/70 (92) 98 07/03/18 16:00 99.4 58 20 134/75 (94) 96 07/03/18 13:09 73 18 100 Room Air 21 07/03/18 13:00 74 18 97 Room Air 21 07/03/18 12:00 98.4 61 20 124/66 (85) 98 07/03/18 09:00 Room Air 07/03/18 08:00 98.9 63 19 149/73 (98) 96 Intake and Output 07/03/18 07/04/18 18:59 06:59 Intake Total 1070 ml 1140 ml Balance 1070 ml 1140 ml Intake Oral 1070 ml 1030 ml IV Total 110 ml # Voids 2 3 # Bowel Movements 1 General Appearance: no acute distress HEENT: normocephalic, atraumatic, anicteric, mucous membranes moist Respiratory/Chest: no respiratory distress, no accessory muscle use, other - few scattered rhonchi on the right Cardiovascular: normal peripheral pulses, normal rate, no JVD Abdomen: normal bowel sounds, soft, non tender, non distended Extremities: no edema, pedal pulses normal Neurologic/Psychiatric: no motor/sensory deficits, alert, oriented x 3, responsive Musculoskeletal: normal muscle bulk Microbiology Date/Time Source Procedure Growth Status 07/02/18 18:45 Nose Influenza Types A,B Antigen (JOSH) - Final Complete Laboratory Tests 07/04/18 05:06: White Blood Count 6.5, Red Blood Count 4.91, Hemoglobin 13.7L, Hematocrit 38.9L , Mean Corpuscular Volume 79L, Mean Corpuscular Hemoglobin 27.9, Mean Corpuscular Hemoglobin Concent 35.2, Red Cell Distribution Width 11.0L, Platelet Count 220, Mean Platelet Volume 5.8L, Neutrophils (%) (Auto) 66.3, Lymphocytes (%) (Auto) 19.7L, Monocytes (%) (Auto) 7.5, Eosinophils (%) (Auto) 5.5H, Basophils (%) (Auto) 1.0, Sodium Level 138, Potassium Level 3.6, Chloride Level 104, Carbon Dioxide Level 30, Anion Gap 5, Blood Urea Nitrogen 9, Creatinine 0.8, Estimat Glomerular Filtration Rate , Glucose Level 108H, Calcium Level 8.3L, Phosphorus Level 2.9, Magnesium Level 2.2, Total Bilirubin 0.4, Aspartate Amino Transf (AST/SGOT) 34, Alanine Aminotransferase (ALT/SGPT) 37, Alkaline Phosphatase 106, Total Protein 6.7, Albumin 2.6L, Globulin 4.1, Albumin/Globulin Ratio 0.6L Current Medications Medications (Trade) Dose Ordered Sig/Reinier Route PRN Reason Start Time Stop Time Status Last Admin Dose Admin Acetaminophen (Tylenol) 650 mg Q6H PRN ORAL Mild Pain/Temp > 100.5 07/02/18 01:45 08/01/18 01:44 07/02/18 17:29 Albuterol/ Ipratropium (Albuterol/ Ipratropium) 3 ml Q6HRT HHN 07/02/18 19:00 07/07/18 18:59 07/03/18 20:28 Azithromycin (Zithromax) 500 mg Q24H ORAL 07/02/18 20:00 07/09/18 19:59 07/03/18 20:02 Ceftriaxone Sodium 2 gm/ Dextrose 110 ml @ 220 mls/hr Q24H IVPB 07/02/18 20:00 07/09/18 19:59 07/03/18 20:41 Heparin Sodium (Porcine) (Heparin 5000 units/ml) 5,000 units EVERY 8 HOURS SUBQ 07/02/18 09:00 08/01/18 08:59 07/03/18 21:46 Iopamidol (Isovue-300 100ml) 100 ml NOW PRN INJ Radiology Procedure 07/02/18 13:30 07/04/18 13:22 Lorazepam (Ativan) 1 mg Q6H PRN ORAL For Anxiety 07/03/18 14:15 07/10/18 14:14 Promethazine HCl/ Codeine (Phenergan with Codeine) 5 ml Q4H PRN ORAL For Cough 07/02/18 13:30 08/01/18 13:29 Theophylline (Slava-Dur) 100 mg EVERY 12 HOURS ORAL 07/02/18 21:00 08/01/18 20:59 07/03/18 21:42 Jojo Taveras NP Jul 04, 2018 07:38
--- NOTE | 2018-07-04 08:15 | Infectious Diseases Prog Note ---
Assessment/Plan Assessment/Plan Abx: Ceftriaxone 07/02- Azithromycin 07/02- Assessment: CAP -CXR: There is dense consolidation of the posterior right middle lobe. The remainder the lungs are clear. -influenza sc neg -CT chest: Right middle lobe and superior segment right lower lobe infiltrate. Most likely secondary to pneumonia. Incidental finding of mild fatty liver. Incidental findings of right renal and right lobe hepatic cyst. Fever - Resolved No Leukocytosis Plan: -Continue Ceftriaxone and Azithromycin #3 for PNA -f/u sp cx -f/u cx -Monitor CBC/CMP, temperatures -aspiration precautions Thank you for this consultation. Will continue to follow along with you. Discussed with RN Subjective Allergies: Coded Allergies: PENICILLIN G PROCAINE (Verified Allergy, Intermediate, 07/02/18) PENICILLINS (Verified Allergy, Intermediate, 07/02/18) Subjective Patient satting well on RA Afebrile with no Leukocytosis Objective Vital Signs Last 24 Hour Vital Signs Date Time Temp Pulse Resp B/P (MAP) Pulse Ox O2 Delivery O2 Flow Rate FiO2 07/04/18 08:02 68 16 98 Room Air 21 07/04/18 03:59 98.6 55 20 123/64 (83) 98 07/04/18 01:19 Room Air 21 07/04/18 01:19 Room Air 21 07/04/18 00:00 99.0 58 20 136/70 (92) 96 07/03/18 21:00 Room Air 07/03/18 20:31 62 18 100 Room Air 21 07/03/18 20:19 60 18 96 Room Air 21 07/03/18 20:00 98.7 64 20 137/70 (92) 98 07/03/18 16:00 99.4 58 20 134/75 (94) 96 07/03/18 13:09 73 18 100 Room Air 21 07/03/18 13:00 74 18 97 Room Air 21 07/03/18 12:00 98.4 61 20 124/66 (85) 98 07/03/18 09:00 Room Air Height (Feet): 5 Height (Inches): 6.00 Weight (Pounds): 173 Objective GENERAL: NAD HEAD AND NECK: NCAT, MMM, EOMI LUNGS: CTAB. No wheezing or rales. HEART: S1 and S2. Regular rhythm. No gallops. ABDOMEN: Soft, nondistended, and nontender. Positive bowel sounds. Microbiology Date/Time Source Procedure Growth Status 07/02/18 18:45 Nose Influenza Types A,B Antigen (JOSH) - Final Complete Laboratory Tests Test 07/04/18 05:06 White Blood Count 6.5 K/UL (4.8-10.8) Red Blood Count 4.91 M/UL (4.70-6.10) Hemoglobin 13.7 G/DL (14.2-18.0) L Hematocrit 38.9 % (42.0-52.0) L Mean Corpuscular Volume 79 FL (80-99) L Mean Corpuscular Hemoglobin 27.9 PG (27.0-31.0) Mean Corpuscular Hemoglobin Concent 35.2 G/DL (32.0-36.0) Red Cell Distribution Width 11.0 % (11.6-14.8) L Platelet Count 220 K/UL (150-450) Mean Platelet Volume 5.8 FL (6.5-10.1) L Neutrophils (%) (Auto) 66.3 % (45.0-75.0) Lymphocytes (%) (Auto) 19.7 % (20.0-45.0) L Monocytes (%) (Auto) 7.5 % (1.0-10.0) Eosinophils (%) (Auto) 5.5 % (0.0-3.0) H Basophils (%) (Auto) 1.0 % (0.0-2.0) Sodium Level 138 MMOL/L (136-145) Potassium Level 3.6 MMOL/L (3.5-5.1) Chloride Level 104 MMOL/L (98-107) Carbon Dioxide Level 30 MMOL/L (21-32) Anion Gap 5 mmol/L (5-15) Blood Urea Nitrogen 9 mg/dL (7-18) Creatinine 0.8 MG/DL (0.55-1.30) Estimat Glomerular Filtration Rate mL/min (>60) Glucose Level 108 MG/DL (74-106) H Calcium Level 8.3 MG/DL (8.5-10.1) L Phosphorus Level 2.9 MG/DL (2.5-4.9) Magnesium Level 2.2 MG/DL (1.8-2.4) Total Bilirubin 0.4 MG/DL (0.2-1.0) Aspartate Amino Transf (AST/SGOT) 34 U/L (15-37) Alanine Aminotransferase (ALT/SGPT) 37 U/L (12-78) Alkaline Phosphatase 106 U/L (46-116) Total Protein 6.7 G/DL (6.4-8.2) Albumin 2.6 G/DL (3.4-5.0) L Globulin 4.1 g/dL Albumin/Globulin Ratio 0.6 (1.0-2.7) L Current Medications Medications (Trade) Dose Ordered Sig/Reinier Route PRN Reason Start Time Stop Time Status Last Admin Dose Admin Acetaminophen (Tylenol) 650 mg Q6H PRN ORAL Mild Pain/Temp > 100.5 07/02/18 01:45 08/01/18 01:44 07/02/18 17:29 Albuterol/ Ipratropium (Albuterol/ Ipratropium) 3 ml Q6HRT HHN 07/02/18 19:00 07/07/18 18:59 07/04/18 08:02 Azithromycin (Zithromax) 500 mg Q24H ORAL 07/02/18 20:00 07/09/18 19:59 07/03/18 20:02 Ceftriaxone Sodium 2 gm/ Dextrose 110 ml @ 220 mls/hr Q24H IVPB 07/02/18 20:00 07/09/18 19:59 07/03/18 20:41 Heparin Sodium (Porcine) (Heparin 5000 units/ml) 5,000 units EVERY 8 HOURS SUBQ 07/02/18 09:00 08/01/18 08:59 07/03/18 21:46 Iopamidol (Isovue-300 100ml) 100 ml NOW PRN INJ Radiology Procedure 07/02/18 13:30 07/04/18 13:22 Lorazepam (Ativan) 1 mg Q6H PRN ORAL For Anxiety 07/03/18 14:15 07/10/18 14:14 Promethazine HCl/ Codeine (Phenergan with Codeine) 5 ml Q4H PRN ORAL For Cough 07/02/18 13:30 08/01/18 13:29 Theophylline (Slava-Dur) 100 mg EVERY 12 HOURS ORAL 07/02/18 21:00 08/01/18 20:59 07/03/18 21:42 Ronnell Hurst MD Jul 04, 2018 08:15
[2018-07-04] MEDS: Theophylline ER 100mg ORAL SCH (08:27)
[2018-07-04 09:00] VITALS: BP 124/64
[2018-07-04 12:00] VITALS: BP 156/87
[2018-07-04] MEDS ORDERED: CEFDINIR300 MG PO (14:04)
--- NOTE | 2018-07-04 14:06 | Internal Med Progress Note ---
Subjective Physician Name Juni Haider Attending Physician Juni Haider MD Current Medications Medications (Trade) Dose Ordered Sig/Reinier Route PRN Reason Start Time Stop Time Status Last Admin Dose Admin Acetaminophen (Tylenol) 650 mg Q6H PRN ORAL Mild Pain/Temp > 100.5 07/02/18 01:45 08/01/18 01:44 07/02/18 17:29 Albuterol/ Ipratropium (Albuterol/ Ipratropium) 3 ml Q6HRT HHN 07/02/18 19:00 07/07/18 18:59 07/04/18 13:25 Azithromycin (Zithromax) 500 mg Q24H ORAL 07/02/18 20:00 07/09/18 19:59 07/03/18 20:02 Ceftriaxone Sodium 2 gm/ Dextrose 110 ml @ 220 mls/hr Q24H IVPB 07/02/18 20:00 07/09/18 19:59 07/03/18 20:41 Heparin Sodium (Porcine) (Heparin 5000 units/ml) 5,000 units EVERY 8 HOURS SUBQ 07/02/18 09:00 08/01/18 08:59 07/03/18 21:46 Lorazepam (Ativan) 1 mg Q6H PRN ORAL For Anxiety 07/03/18 14:15 07/10/18 14:14 Promethazine HCl/ Codeine (Phenergan with Codeine) 5 ml Q4H PRN ORAL For Cough 07/02/18 13:30 08/01/18 13:29 Theophylline (Slava-Dur) 100 mg EVERY 12 HOURS ORAL 07/02/18 21:00 08/01/18 20:59 07/04/18 08:27 Allergies: Coded Allergies: PENICILLIN G PROCAINE (Verified Allergy, Intermediate, 07/02/18) PENICILLINS (Verified Allergy, Intermediate, 07/02/18) Subjective awake, responsive, No SOB, Less Dry cough. Objective Last Vital Signs Date Time Temp Pulse Resp B/P (MAP) Pulse Ox O2 Delivery O2 Flow Rate FiO2 07/04/18 13:25 74 18 96 Room Air 21 07/04/18 03:59 98.6 123/64 (83) Laboratory Tests Test 07/04/18 05:06 White Blood Count 6.5 K/UL (4.8-10.8) Red Blood Count 4.91 M/UL (4.70-6.10) Hemoglobin 13.7 G/DL (14.2-18.0) L Hematocrit 38.9 % (42.0-52.0) L Mean Corpuscular Volume 79 FL (80-99) L Mean Corpuscular Hemoglobin 27.9 PG (27.0-31.0) Mean Corpuscular Hemoglobin Concent 35.2 G/DL (32.0-36.0) Red Cell Distribution Width 11.0 % (11.6-14.8) L Platelet Count 220 K/UL (150-450) Mean Platelet Volume 5.8 FL (6.5-10.1) L Neutrophils (%) (Auto) 66.3 % (45.0-75.0) Lymphocytes (%) (Auto) 19.7 % (20.0-45.0) L Monocytes (%) (Auto) 7.5 % (1.0-10.0) Eosinophils (%) (Auto) 5.5 % (0.0-3.0) H Basophils (%) (Auto) 1.0 % (0.0-2.0) Sodium Level 138 MMOL/L (136-145) Potassium Level 3.6 MMOL/L (3.5-5.1) Chloride Level 104 MMOL/L (98-107) Carbon Dioxide Level 30 MMOL/L (21-32) Anion Gap 5 mmol/L (5-15) Blood Urea Nitrogen 9 mg/dL (7-18) Creatinine 0.8 MG/DL (0.55-1.30) Estimat Glomerular Filtration Rate mL/min (>60) Glucose Level 108 MG/DL (74-106) H Calcium Level 8.3 MG/DL (8.5-10.1) L Phosphorus Level 2.9 MG/DL (2.5-4.9) Magnesium Level 2.2 MG/DL (1.8-2.4) Total Bilirubin 0.4 MG/DL (0.2-1.0) Aspartate Amino Transf (AST/SGOT) 34 U/L (15-37) Alanine Aminotransferase (ALT/SGPT) 37 U/L (12-78) Alkaline Phosphatase 106 U/L (46-116) Total Protein 6.7 G/DL (6.4-8.2) Albumin 2.6 G/DL (3.4-5.0) L Globulin 4.1 g/dL Albumin/Globulin Ratio 0.6 (1.0-2.7) L Microbiology Date/Time Source Procedure Growth Status 07/02/18 18:45 Nose Influenza Types A,B Antigen (JOSH) - Final Complete Intake and Output 07/03/18 07/04/18 18:59 06:59 Intake Total 1070 ml 1140 ml Balance 1070 ml 1140 ml Intake Oral 1070 ml 1030 ml IV Total 110 ml # Voids 2 3 # Bowel Movements 1 Objective General: No acute distress, awake and alert HEENT: NCAT, sclera anicteric, PERRL, EOMI. Neck: Supple, no significant jugular venous distention, Lungs: Good inspiratory effort, clear to auscultation bilaterally, no Wheeze or Rales. Heart: Regular rate and rhythm, normal S1/S2, no murmurs Abdomen: soft, nontender, nondistended. Normoactive bowel sounds. / Rectal: Refused and deferred. Extremities: No Cyanosis , clubbing or edema. Neuro: A&O x 3, Able to move all extremities Skin: warm, no rashes or lesions Psych: Normal mood and affect Assessment/Plan Assessment/Plan 1. Fever most likely secondary to community-acquired pneumonia with Right middle lobe and superior segment right lower lobe infiltrate. 2. Hyponatremia resolving. 3. Dehydration. Plan: Abx: Dc Zithromax and DC Rocephin, start Ceftin F/U with Dr. Isaac recommendation Heparin SQ Full code DC home today CT Chest: Impression: Right middle lobe and superior segment right lower lobe infiltrate. Most likely secondary to pneumonia. Incidental finding of mild fatty liver Incidental findings of right renal and right lobe hepatic cyst. Juni Haider MD Jul 04, 2018 14:05
--- NOTE | 2018-07-06 13:08 | Discharge Summary ---
Discharge Summary Discharge Summary _ DATE OF ADMISSION: 2017 DATE OF DISCHARGE: 07/04/2018 DISCHARGED BY: Dr. Haider REASON FOR ADMISSION: 73 years old male with no significant past medical history, presented initially to [facility] with complaints of fever for the past 5 days. No chills, no night sweats. Patient reported nonproductive cough , no hemoptysis , no wheezing. After initial evaluation in [place] emergency department, patient was found to have right lower lobe infiltrate on the chest x-ray patient . Patient also noted to be hyponatremic . Subsequently patient was transferred to [facility] for further management. CONSULTANTS: pulmonary Dr. Isaac ID specialist Dr. Altamirano psychiatrist [facility]SE: Patient admitted to medical surgical floor. Pulmonology and ID consults were requested. Patient started on empiric antibiotics. Supplemental oxygen provided as needed to keep pulse oximetry above 92% ; pulmonary toilet provided as needed. CT of the chest revealed right middle lobe and superior segment right lower lobe infiltrates. Most likely secondary to pneumonia. The CT chest also revealed incidental finding of mild fatty liver. Antibiotic provided as per infectious disease specialist recommendations. Influenza screen test was negative. Unable to obtain sputum culture since cough was nonproductive. Trial of theophylline started by park manager. Antitussive provided as needed. DVT prophylaxis provided. Patient initially provided with intravenous fluid . Sodium normalized. Initial hyponatremia was likely due to dehydration. Renal parameters and electrolytes were closely monitor. Electrolytes corrected as needed. Nephrotoxins were avoided. No abdominal pain ,no nausea, no vomiting . Patient was able to tolerate diet. Psychiatrist followed for anxiety. Reality orientation and supportive therapy provided. Anxiolytic were on board as needed. Patient clinically improved: fever resolved, no leukocytosis ,pulse oximetry stable on room air. Sodium up to normal 138. Patient was discharged home on oral antibiotic to complete the course. FINAL DIAGNOSES: Community acquired pneumonia Dehydration Hyponatremia Mild fatty liver Anxiety disorder DISCHARGE MEDICATIONS: See Medication Reconciliation list. DISCHARGE INSTRUCTIONS: Patient was discharged home . Follow up with primary care provider in one week. Jojo Taveras NP Jul 06, 2018 13:08
== END 2018-07-04 16:00 | disposition home or self-care (01) | DRG 194 ==
LOC: 3E 07-02 00:34
DX: J18.9 Pneumonia, unspecified organism (principal); E87.1 Hypo-osmolality and hyponatremia; E86.0 Dehydration; F41.9 Anxiety disorder, unspecified; G47.00 Insomnia, unspecified; K76.0 Fatty (change of) liver, not elsewhere classified
CPT/HCPCS: 36415; 71046; 71260; 80053; 83735; 84100; 85025; 85651; 86140; 86710; 94640; 94664; J7620; J8499